=== PATIENT | male | born 1995 | race Caucasian/White ===

== ENCOUNTER 2020-05-28 07:24 | Day surgery (SDC) | payer OTHER ==
[2020-05-23 09:48] LABS: BASOPHILS % (AUTO) 0.7 % (0.0-5.0); EOSINOPHILS % (AUTO) 1.6 % (0.0-8.0); HEMATOCRIT 49.4 % (42-54); MEAN CORPUSCULAR HEMOGLOBIN 27.6 pg (27.0-33.0); MEAN CORPUSCULAR HGB CONC 33.4 g/dL (32.0-36.0); MEAN CORPUSCULAR VOLUME 82.7 fL (79-99); MONOCYTES % (AUTO) 7.6 % (3.0-13.0); NEUTROPHILS % (AUTO) 58.9 % (40.0-77.0); PLATELET COUNT (AUTO) 330 K/uL (130-400); RED BLOOD CELL COUNT(AUTO) 5.97 MIL/uL (4.50-6.20); RED CELL DISTRIBUTION WIDTH 12.2 % (11.0-15.5); WHITE BLOOD COUNT (AUTO) 6.1 K/uL (4.8-10.8)
[2020-05-23 10:09] LABS: CREATININE 1.1 mg/dL (0.5-1.5); POTASSIUM 4.4 mmol/L (3.5-5.1)
[2020-05-27 11:53] VITALS: BP 120/70
[2020-05-28] VITALS (17 sets, daily range): BP systolic 113–147; BP diastolic 41–80
[~2020-05-28] VITALS: Ht 188 cm; Wt 83.7 kg
[~2020-05-28 07:24] MED LIST: CEFAZOLIN SODIUM 1 GM VIAL IVP SCH
[2020-05-28] MEDS ORDERED: NAPR-1023 PO (09:14)
[2020-05-28] MEDS ORDERED: LACTATED RINGERS 1000ML 1,000 ML IV ONE (09:31)
[2020-05-28] MEDS ORDERED: MIDAZOLAM HCL 1 MG/ML 2ML VIAL ONE (10:32)
[2020-05-28] MEDS ORDERED: PROPOFOL 10 MG/ML 20ML VIAL IV ONE (10:32)
[2020-05-28] MEDS ORDERED: LIDOCAINE PF 2% 5ML ABBOJECT ONE (10:32)
[2020-05-28] MEDS ORDERED: ROCURONIUM 10MG/1ML SYR 10 MG/ML ML ONE (10:32)
[2020-05-28] MEDS ORDERED: SUCCINYLCHOLINE CHLORIDE 20 MG/ML 10 ML VIAL ONE (10:32)
[2020-05-28] MEDS ORDERED: FENTANYL CITRATE PF 50 MCG/1 ML 2ML VIAL ONE (10:32)
[2020-05-28] MEDS ORDERED: CEFAZOLIN SODIUM 1 GM VIAL ONE (10:39)
[2020-05-28] MEDS ORDERED: ROPIVACAINE 0.5% 5MG/ML 30ML IJ ONE ×2 (10:45→10:46)
[2020-05-28] MEDS ORDERED: DEXAMETHASONE SOD PHOSPHATE 10MG/ML 1ML VIAL ONE (12:05)
[2020-05-28] MEDS ORDERED: DiphenhydrAMINE HCL 50 MG/ML VIAL ONE (12:35)
[2020-05-28] MEDS ORDERED: CEFAZOLIN SODIUM 1 GM VIAL IRRIG ONE (13:50)
[2020-05-28] MEDS ORDERED: GLYCOPYRROLATE 1 MG/5 ML SYRINGE ONE (14:22)
[2020-05-28] MEDS ORDERED: ONDANSETRON HCL 4 MG/2 ML VIAL ONE (14:22)
[2020-05-28] MEDS ORDERED: NEOSTIGMINE 5MG/5ML SYR IV ONE (14:22)
[2020-05-28] MEDS ORDERED: HYDR-4457 PO (14:42)
[2020-05-28] MEDS ORDERED: CLIN300C3 PO (14:42)
--- NOTE | 2020-05-28 16:00 | NUR ---
Pt received Pt received from PACU via stretcher accompanied by [facility]. Pt awake and alert. Denies any pain. Good pedal pulses palpated to right foot. Able to move toes without difficulty; warm to touch. Has be wrap to right knee with band-aid above it. Scant bleeding noted to band-aid. Sister brought in to bedside.
--- NOTE | 2020-05-28 16:45 | NUR ---
D/C Pt prepared for discharge. Verbal and discharge instructions given to pt and sister. Verbalized understanding; informed them of electronic rx sent to [facility] ([facility] Dressing remains intact with right toes having good capillary refill. Pt was then taken to private vehicle via wheelchair in no distress.
== END 2020-05-28 17:00 ==
LOC: DAH 07:24
PROVIDERS: ATTEND Orthopaedic Surgery
DX: S83.241A Other tear of medial meniscus, current injury, right knee, initial encounter (principal); S83.281A Other tear of lateral meniscus, current injury, right knee, initial encounter; S83.511A Sprain of anterior cruciate ligament of right knee, initial encounter; R26.89 Other abnormalities of gait and mobility; Z90.49 Acquired absence of other specified parts of digestive tract; Z98.890 Other specified postprocedural states; X58.XXXA Exposure to other specified factors, initial encounter; Y93.67 Activity, basketball; Y92.89 Other specified places as the place of occurrence of the external cause; Y99.8 Other external cause status; Z20.828 Contact with and (suspected) exposure to other viral communicable diseases
CPT/HCPCS: 29880; 29888; 36415; 64445; 64447; 76942; 80048; 85025; A4215; A4221; A4222; A4223; A4649 ×5; A4663; A4930 ×2; A6223; C1713 ×2; C1776; C9803; G0168; J0330; J0690 ×3; J1100; J1200; J2001; J2250; J2405; J2704; J2710; J2795 ×2; J3010; J3490; J7030; J7120; U0003